=== PATIENT | female | born 1990 | race African-American/Black ===

== ENCOUNTER 2019-06-22 21:27 | Emergency (ER) | payer MEDICAID ==
[~2019-06-22] VITALS: Ht 152.4 cm; Wt 68.0 kg
[2019-06-22 22:28] LABS: Urine Bacteria FEW /hpf (None Seen); Urine Blood 2+ /uL (Negative); Urine Mucus FEW (None Seen); Urine Specific Gravity 1.024 (1.001-1.035); Urine WBC 282 /hpf (0 - 5)
[2019-06-22 23:07] VITALS: BP 131/90
[2019-06-22] MEDS ORDERED: PHENAZOPYRIDINE HCL 100 MG TAB PO ONE (23:15)
[2019-06-22] MEDS ORDERED: cefTRIAXone SOD 1,000 MG VL IM ONE (23:15)
== END 2019-06-23 00:01 | disposition home or self-care (01) ==
LOC: ER 21:27
DX: N39.0 Urinary tract infection, site not specified (principal)
CPT/HCPCS: 81001; 81025; 96372; 99283; J0696